=== PATIENT | female | born 2000 | race American Indian/Alaskan Native ===

== ENCOUNTER 2019-09-02 00:41 | Emergency (ER) | payer SELFPAY ==
[2019-09-02 01:41] LABS: Basophils # (Auto) 0.1 K/mm3 (0.0-0.1); Basophils % (Auto) 0.7 % (0.0-1.8); Eosinophils # (Auto) 0.1 K/mm3 (0.0-0.4); Hematocrit 39.6 % (30.3-42.9); Lymphocytes # (Auto) 2.5 K/mm3 (1.2-5.4); Lymphocytes % (Auto) 30.3 % (13.4-35.0); Mean Corpuscular HGB Conc 33 % (30-34); Mean Corpuscular Volume 85 fl (79-97); Monocytes # (Auto) 0.5 K/mm3 (0.0-0.8); Platelet Count 298 K/mm3 (140-440); Red Blood Count 4.65 M/mm3 (3.65-5.03); Red Cell Distribution Width 15.2 % (13.2-15.2)
--- NOTE | 2019-09-02 01:44 | Emergency Department Report ---
<TERESA VAZQUEZ - Last Filed: 09/02/19 14:24> ED Psych HPI - General Chief Complaint: Psych Stated Complaint: ANXIETY, PANIC ATTACK, DEPRESSION Time Seen by Provider: 09/02/19 01:31 - Related Data Home Medications Medication Instructions Recorded Confirmed Last Taken No Known Home Medications [No 09/02/19 09/02/19 Unknown Reported Home Medications] Allergies Allergy/AdvReac Type Severity Reaction Status Date / Time No Known Allergies Allergy Unverified 09/02/19 01:09 ED Past Medical Hx - Medications Home Medications: Home Medications Medication Instructions Recorded Confirmed Last Taken Type No Known Home Medications [No 09/02/19 09/02/19 Unknown History Reported Home Medications] ED Course - Reevaluation(s) Reevaluation #1: 09/02/19 14:25 Patient is a 19-year-old female who states she's been having some thoughts of suicide but has no plan. Patient states she is under a lot of stress. Patient seen by mental health assessment certify counselor and the patient states she is adamant that she is not wanting to actually kill herself she just feels very down and depressed. Patient was having some feelings that she didn't want to live anymore. Patient is agreeable to outpatient therapy. Patient is given community resources such as [facility] for follow-up. Patient will be discharged home. ED Medical Decision Making - Lab Data Result diagrams: 09/02/19 01:16 09/02/19 01:16 ED Disposition Clinical Impression: Depression, Suicidal ideation Disposition: DC-01 TO HOME OR SELFCARE Is pt being admited?: No Does the pt Need Aspirin: No Condition: Stable Instructions: Depression (ED) Referrals: PRIMARY CARE, [Primary Care Provider] - 3-5 Days [facility] [Outside] - 3-5 Days Time of Disposition: 14:26 <RENAN OLSEN - Last Filed: 09/03/19 05:47> ED Psych HPI - General Source: patient Mode of arrival: Ambulatory - History of Present Illness Initial Comments: Patient is 19 years old female with no significant past medical history or past psychiatric history. Patient presented to the ER stating that she is feeling depressed and having a lot of negative thoughts. Patient stated that she been having thoughts of suicide but does not have a plan. Patient stated that she recently from [facility]. She denied any homicidal ideation. Patient admitted that she is having auditory hallucinations sometimes. MD Complaint: suicidal ideation, feels depressed ED Review of Systems ROS: Stated complaint: ANXIETY, PANIC ATTACK, DEPRESSION Other details as noted in HPI Comment: All other systems reviewed and negative Constitutional: denies: chills, fever Respiratory: denies: cough, shortness of breath, SOB with exertion, wheezing Cardiovascular: denies: chest pain, palpitations Gastrointestinal: denies: abdominal pain, nausea, vomiting Neurological: denies: headache, weakness Psychiatric: depression, auditory hallucinations, suicidal thoughts. denies: visual hallucinations, homicidal thoughts ED Past Medical Hx - Past Medical History Previous Medical History?: No - Surgical History Past Surgical History?: No - Social History Smoking Status: Current Every Day Smoker Substance Use Type: Alcohol ED Physical Exam - General Limitations: No Limitations General appearance: alert, in no apparent distress, anxious - Head Head exam: Present: atraumatic, normocephalic, normal inspection - Eye Eye exam: Present: normal appearance - ENT ENT exam: Present: normal exam, normal orophraynx, mucous membranes moist - Neck Neck exam: Present: normal inspection, full ROM. Absent: tenderness, meningismus, lymphadenopathy, thyromegaly - Respiratory Respiratory exam: Present: normal lung sounds bilaterally - Cardiovascular Cardiovascular Exam: Present: regular rate, normal rhythm, normal heart sounds - GI/Abdominal GI/Abdominal exam: Present: soft, normal bowel sounds. Absent: distended, tenderness, guarding, rebound, rigid, organomegaly, mass, bruit, pulsatile mass, hernia - Extremities Exam Extremities exam: Present: normal inspection, full ROM, normal capillary refill - Back Exam Back exam: Present: normal inspection, full ROM. Absent: tenderness, CVA tenderness (R), CVA tenderness (L), muscle spasm, paraspinal tenderness, vertebral tenderness - Neurological Exam Neurological exam: Present: alert, oriented X3, CN II-XII intact, normal gait, reflexes normal - Psychiatric Psychiatric exam: Present: depressed, anxious, suicidal ideation. Absent: agitated, flat affect, manic, homicidal ideation - Skin Skin exam: Present: warm, intact, normal color ED Course Vital Signs 09/02/19 09/02/19 09/02/19 00:57 01:04 07:00 Temperature 99.0 F 99.0 F 98.5 F Pulse Rate 125 H 126 H 115 H Respiratory 18 18 18 Rate Blood Pressure 132/89 132/89 Blood Pressure 134/91 [Left] O2 Sat by Pulse 94 99 Oximetry 09/02/19 13:00 Temperature 98.6 F Pulse Rate 90 Respiratory 18 Rate Blood Pressure Blood Pressure 125/67 [Left] O2 Sat by Pulse 100 Oximetry ED Medical Decision Making - Lab Data Result diagrams: 09/02/19 01:16 09/02/19 01:16 Critical care attestation.: If time is entered above; I have spent that time in minutes in the direct care of this critically ill patient, excluding procedure time.
[2019-09-02 02:02] LABS: BUN/Creatinine Ratio 11; Blood Urea Nitrogen 8 mg/dL (7-17); Calcium 9.7 mg/dL (8.4-10.2); Hemolysis Index 4
[2019-09-02 14:17] VITALS: BP 125/67
== END 2019-09-02 15:16 | disposition home or self-care (01) ==
LOC: ED 00:41
DX: F32.9 Major depressive disorder, single episode, unspecified (principal)
CPT/HCPCS: 36415; 80048; 80320; 84703; 85025; G0480

== ENCOUNTER 2019-09-15 10:28 | Emergency (ER) | payer SELFPAY ==
[2019-09-15 10:44] VITALS: BP 147/90
--- NOTE | 2019-09-15 11:24 | Event Note ---
ED Screening Note ED Screening Note: states she has a headache x 1week states she took tylenol states she has intermittent blurry vision, no blurry vision nausea lightheaded no vomiting no diarrhea no numbness or weakness PMHx none no allergies to meds LNMP: a week ago This initial assessment/diagnostic orders/clinical plan/treatment(s) is/are subject to change based on patients health status, clinical progression and re- assessment by fellow clinical providers in the ED. Further treatment and workup at subsequent clinical providers discretion. Patient/guardian urged not to elope from the ED as their condition may be serious if not clinically assessed and managed.
== END 2019-09-15 17:28 | disposition left against medical advice (07) ==
LOC: ED 10:28
DX: R53.1 Weakness (principal); Z53.21 Procedure and treatment not carried out due to patient leaving prior to being seen by health care provider